=== PATIENT | female | born 1990 | race Hispanic/Latino ===

== ENCOUNTER 2018-07-09 17:36 | Emergency (ER) | payer MEDICAID, OTHER | END 2018-07-09 18:31 | disposition home or self-care (01) | LOC: EDH 17:36 | DX: M25.561 Pain in right knee (principal); W18.39XA Other fall on same level, initial encounter; Y93.01 Activity, walking, marching and hiking; Y92.89 Other specified places as the place of occurrence of the external cause; Y99.8 Other external cause status | CPT/HCPCS: 99281 ==

== ENCOUNTER 2019-08-16 02:13 | Emergency (ER) | payer SELFPAY ==
[2019-08-16 02:36] LABS: APPEARANCE,URINE Clear (CLEAR); BILIRUBIN,URINE Negative (NEGATIVE); COLOR,URINE Yellow (YELLOW); GLUCOSE, URINE (UA) Negative (NEGATIVE); KETONES,URINE Negative (NEGATIVE); LEUKOCYTE ESTERASE ,URINE Trace (NEGATIVE); NITRATE,URINE Negative (NEGATIVE); OCCULT BLOOD,URINE Negative (NEGATIVE); PROTEIN,URINE Negative (NEGATIVE)
[2019-08-16 02:44] LABS: BASOPHILS % (AUTO) 0.4 % (0.0-5.0); EOSINOPHILS % (AUTO) 1.7 % (0.0-8.0); MEAN CORPUSCULAR HEMOGLOBIN 27.8 pg (27.0-33.0); MEAN CORPUSCULAR VOLUME 84.4 fL (79-99); MONOCYTES % (AUTO) 5.6 % (3.0-13.0); PLATELET COUNT (AUTO) 296 K/uL (130-400); RED BLOOD CELL COUNT(AUTO) 4.74 MIL/uL (4.00-5.50); RED CELL DISTRIBUTION WIDTH 14.2 % (11.0-15.5); WHITE BLOOD COUNT (AUTO) 12.8 K/uL (4.8-10.8)
[2019-08-16 02:44] LABS: HCG,QUAL RESULT NEGATIVE (NEGATIVE)
[2019-08-16 03:02] LABS: BACTERIA,URINE Rare /HPF (None Seen); MUCUS,URINE Moderate LPF (None Seen); RBC,URINE 0-1 /HPF (0-1); SQUAMOUS EPITHELIAL CELL,UR Moderate /HPF (0-2)
[2019-08-16] MEDS ORDERED: ORPHENADRINE CITRATE 30 MG/ML ML ONE (03:05)
[2019-08-16] MEDS ORDERED: KETOROLAC TROMETHAMINE 30MG/ML ONE (03:05)
[2019-08-16 03:37] LABS: CREATININE 0.9 mg/dL (0.5-1.5); POTASSIUM 3.6 mmol/L (3.5-5.1)
[2019-08-16 03:41] LABS: ALBUMIN 3.7 g/dL (3.5-5.0); BILIRUBIN,TOTAL 0.3 mg/dL (0.2-1.0); TOTAL PROTEIN, SERUM 7.6 g/dL (6.0-8.3)
[2019-08-16] MEDS ORDERED: LIDOCAINE 5% TOPICAL PATCH TP ONE (04:00)
== END 2019-08-16 04:11 | disposition home or self-care (01) ==
LOC: EDH 02:13
DX: M62.838 Other muscle spasm (principal); R51 Headache
CPT/HCPCS: 36415; 80053; 81001; 81025; 85025; 96361; 96374; 96375; 99284; J1885; J2360

== ENCOUNTER 2021-02-02 20:50 | Inpatient (IN) | payer MEDICAID ==
[~2021-02-02] VITALS: Ht 162.6 cm; Wt 112.9 kg
[2021-02-02] MEDS ORDERED: AMPICILLIN 2GM+NS 100ML 100 ML IV SCH (21:30)
[2021-02-02 21:37] LABS: APPEARANCE,URINE Clear (CLEAR); BILIRUBIN,URINE Negative (NEGATIVE); COLOR,URINE Yellow (YELLOW); GLUCOSE, URINE (UA) Negative (NEGATIVE); KETONES,URINE Negative (NEGATIVE); LEUKOCYTE ESTERASE ,URINE Moderate (NEGATIVE); NITRATE,URINE Negative (NEGATIVE); OCCULT BLOOD,URINE Negative (NEGATIVE); PH,URINE 6.5 (5.0-8.0); PROTEIN,URINE Negative (NEGATIVE); UROBILINOGEN,URINE 0.2 mg/dL (0.2-1.0)
[2021-02-02] MEDS: LACTATED RINGERS 1000ML 1,000 ML IV PRN (21:44)
[2021-02-02 21:45] LABS: HEMATOCRIT 35.5 % (36-48); MEAN CORPUSCULAR HEMOGLOBIN 27.9 pg (27.0-33.0); MEAN CORPUSCULAR HGB CONC 33.2 g/dL (32.0-36.0); MEAN CORPUSCULAR VOLUME 83.9 fL (79-99); RED BLOOD CELL COUNT(AUTO) 4.23 MIL/uL (4.00-5.50); RED CELL DISTRIBUTION WIDTH 14.6 % (11.0-15.5); WHITE BLOOD COUNT (AUTO) 12.3 K/uL (4.8-10.8)
[2021-02-02 22:03] LABS: BACTERIA,URINE Few /HPF (None Seen); MUCUS,URINE Few LPF (None Seen); SQUAMOUS EPITHELIAL CELL,UR Few /HPF (0-2)
[2021-02-03] MEDS: AMPICILLIN 1GM+NS 50ML 50 ML IV SCH ×2 (01:35→05:18)
[2021-02-03] MEDS: OXYTOCIN-LR 20 UNITS/1000 ML 1,000 ML IV SCH ×2 (05:20→10:39)
[2021-02-03] MEDS: LACTATED RINGERS 1000ML 1,000 ML IV PRN (06:35)
[2021-02-03] MEDS ORDERED: BUTORPHANOL TARTRATE 2 MG/ML IVP SCH (08:30)
[2021-02-03] MEDS ORDERED: LIDOCAINE HCL 1% 20 ML VIAL ONE (08:50)
[2021-02-03] MEDS ORDERED: LANOLIN 30GM OINTMENT TP PRN (09:30)
[2021-02-03] MEDS ORDERED: WITCH HAZEL 1 PAD TP PRN (09:30)
[2021-02-03] MEDS ORDERED: MEASLES/MUMPS/RUBELLA VACCINE, LIVE 0.5 ML/VIAL SQ PRN (09:30)
[2021-02-03] MEDS ORDERED: BENZOCAINE/LANOLIN/ALOE VERA 60 ML AEROSOL TP PRN (09:30)
[2021-02-03] MEDS ORDERED: ACETAMINOPHEN 325 MG TAB PO PRN (09:30)
[2021-02-03] MEDS ORDERED: DIPH,PERTUSS(ACELL),TET VAC/PF 0.5 ML VIAL IM PRN (09:30)
[2021-02-03] MEDS: IBUPROFEN 600 MG TABLET PO PRN ×2 (09:40→20:39)
[2021-02-03 10:56] VITALS: BP 130/69
[2021-02-03] MEDS: ACETAMINOPHEN WITH CODEINE 1 TAB TAB PO PRN ×3 (11:17→21:39)
[2021-02-03 16:33] VITALS: BP 91/50
[2021-02-03] MEDS ORDERED: AMOX500C2 PO (17:04)
[2021-02-03 19:20] VITALS: BP 107/55
[2021-02-03] MEDS: DOCUSATE SODIUM 100 MG CAP PO SCH (20:38)
[2021-02-03 23:27] VITALS: BP 115/65
[2021-02-04 03:19] VITALS: BP 105/63
[2021-02-04 06:50] LABS: HEMATOCRIT 30.4 % (36-48); MEAN CORPUSCULAR HEMOGLOBIN 27.1 pg (27.0-33.0); MEAN CORPUSCULAR HGB CONC 33.6 g/dL (32.0-36.0); MEAN CORPUSCULAR VOLUME 80.6 fL (79-99); RED BLOOD CELL COUNT(AUTO) 3.77 MIL/uL (4.00-5.50); RED CELL DISTRIBUTION WIDTH 14.5 % (11.0-15.5); WHITE BLOOD COUNT (AUTO) 13.1 K/uL (4.8-10.8)
[2021-02-04 07:52] VITALS: BP 108/76
[2021-02-04] MEDS: DOCUSATE SODIUM 100 MG CAP PO SCH (08:30)
[2021-02-04 11:50] VITALS: BP 128/82
[2021-02-04] MEDS ORDERED: IBUP-2070 PO (12:54)
[2021-02-04 15:11] LABS: HEPATITIS Bs ANTIGEN SCREEN P Negative (Negative)
== END 2021-02-04 13:00 | disposition home or self-care (01) | DRG 560 ==
LOC: LDH 20:50 → WSH 02-03 10:37
PROVIDERS: ADMIT Obstetrics & Gynecology; ATTEND Obstetrics & Gynecology
PROC: 10E0XZZ Delivery of Products of Conception, External Approach (ICD-10-PCS; principal; 2021-02-03)
PROC: 10907ZC Drainage of Amniotic Fluid, Therapeutic from Products of Conception, Via Natural or Artificial Opening (ICD-10-PCS; 2021-02-03)
PROC: 0HQ9XZZ Repair Perineum Skin, External Approach (ICD-10-PCS; 2021-02-03)
DX: O99.824 Streptococcus B carrier state complicating childbirth (principal); Z37.0 Single live birth; O70.0 First degree perineal laceration during delivery; Z3A.39 39 weeks gestation of pregnancy
CPT/HCPCS: 36415; 81001; 85027; 86592; 86850; 86900; 86901; 87088; 87340; G0378; J0290; J0595; J2590; J7120